=== PATIENT | male | born 1955 | race Caucasian/White ===

== ENCOUNTER → 2016-09-06 | Day surgery (SDC) | payer OTHER ==
[~2016-09-06] VITALS: Ht 185.4 cm; Wt 80.8 kg
[~2016-09-06] MED LIST: MIRALAX17 GM PO; PENTASA500 MG PO; PERCOCET 5-3251 EACH PO
--- NOTE | ~2016-09-06 | OR ---
PATIENT'S NAME: GIBRAN MCCABE [facility] [place] AGE: 61 Y [address] ROOM: [place] [address] [place] [facility] [place] DATE: 09/06/2016 OR/Procedure Report DISCHARGE DATE: FAMILY PHYSICIAN: Rashel Kaur MD ATTENDING PHYSICIAN: BETY ROGERS SURGEON: Bety Rogers MD CHILLER TENDER: León Villa PA-C DATE OF PROCEDURE: 09/06/2016 PREOPERATIVE DIAGNOSIS: Right comminuted and displaced middle one-third fracture of the clavicle. POSTOPERATIVE DIAGNOSIS: Right comminuted and displaced middle one-third fracture of the clavicle. PROCEDURES PERFORMED: 1. Open reduction and internal fixation of right comminuted and displaced middle one-third fracture of the clavicle. 2. Use of intraoperative fluoroscopy, less than 1 hour. ANESTHESIA: General endotracheal anesthesia. FLUIDS: See Anesthesia report. ESTIMATED BLOOD LOSS: Less than 50 mL. FLUIDS: See Anesthesia report. TOURNIQUET: None. SPECIMENS: None. COMPLICATIONS: None. DISPOSITION: Stable in PACU. COUNTS: All counts were correct. IMPLANTS: Synthes right periarticular locking clavicle plate and screws. INDICATIONS: Mr. Mccabe is a pleasant 61-year-old, right-hand dominant gentleman who underwent the noted procedures above. The risks, benefits, and alternatives pursuing a surgical intervention were discussed with the patient in detail. He elected to proceed with surgery. Anesthesia was consulted for their perioperative evaluation of the patient. I marked the right shoulder PATIENT'S NAME: GIBRAN MCCABE [facility] [place] AGE: 61 Y [address] ROOM: [place] [address] LOCATION: [facility] [place] DATE: 09/06/2016 OR/Procedure Report DISCHARGE DATE: FAMILY PHYSICIAN: Rashel Kaur MD ATTENDING PHYSICIAN: BETY ROGERS indicating the correct surgical site. DESCRIPTION OF PROCEDURE: The patient was brought from the holding area to the operating room. A time-out was performed. General endotracheal anesthesia was administered. The patient was placed in a beach chair position. Clindamycin antibiotic was administered for perioperative prophylaxis. The right upper extremity was then prepped and draped in a sterile fashion. I turned my attention to the clavicle. I introduced intraoperative fluoroscopy. I identified the fracture site. Using a #15 blade knife, I made a skin incision through skin, subcutaneous tissue, and clavipectoral fascia down to the clavicle. I debrided the fracture site. I used [id number]-[id number] clamps to provisionally reduce the fracture. There was a fair amount of comminution in the middle third portion of the clavicle that made the reduction of the distal third end of the clavicle more difficult. Once I had provisionally reduced the clavicle, I placed my plate. I opted to use a plate with clusters of screws at the lateral aspect in order to gain additional fixation at the distal end of the clavicle. I confirmed the position of the plate fluoroscopically. I began by drilling for, measuring, and placing a compression screw at the most proximal end of the plate. I repeated this to gain four cortices of fixation and then the medial portion of the clavicle stabilized. Once I did that I used the clavicle plate as a fulcrum in order to reduce the distal one-third aspect of the clavicle to the plate. I was able to provisionally align the comminuted fragments in a near anatomic alignment. I subsequently then drilled for, measured, and placed a compression screw to gain fixation of the distal third aspect of the clavicle. It did reduce satisfactorily. I repeated this to achieve another compression screw to bridge the fracture site. In order to gain more fixation of the distal third of the clavicle, I drilled for, measured, and placed locking screws in the cluster of holes laterally. I confirmed the position fluoroscopically. I then turned my attention back to the proximal end of the plate. Using a locking jig, I drilled for, measured, and placed a locking screw. This achieved a total of 6 cortices of fixation proximal to the fracture site. Distally, there were multiple points of fixation in the distal third of the clavicle. The middle third of the clavicle where the comminution was present was positioned in a near anatomic alignment. Final fluoroscopic images revealed evidence of a successful open reduction and internal fixation of right comminuted and displaced middle one-third clavicle fracture with plate and screw construct placed. The wound was then copiously irrigated with a normal sterile saline solution and closed in layers. Prineo was used to approximate the skin. The patient was then placed into a sling. PATIENT'S NAME: KOGIBRAN ZHAO A [facility] [place] AGE: 61 Y [address] ROOM: [place] [address] LOCATION: [facility] [place] DATE: 09/06/2016 OR/Procedure Report DISCHARGE DATE: FAMILY PHYSICIAN: Rashel Kaur MD ATTENDING PHYSICIAN: BETY ROGERS The patient was then placed supine on the operating table and transferred onto the hospital bed and extubated. He was brought to the recovery room in stable condition. There were no intraoperative complications noted. Of note, my PA, León Villa PA-C, played an integral role in the intraoperative care of this patient. This included preoperative positioning, intraoperative expert retraction, and closing and dressing functions. IMPRESSION: The patient is status post the noted procedures above. PLAN: The patient will be nonweightbearing on the right upper extremity. We will encourage passive and active range of motion of the elbow, forearm, wrist, and hand. He will be nonweightbearing on the right upper extremity with a sling. Postoperative pain control will be in the form of Percocet and IV morphine as needed for pain. DVT prophylaxis will be mechanical in nature. He will be discharged to home from the PACU provided he meets PACU discharge criteria. A postoperative chest x-ray will be obtained in the PACU prior to discharge. I will continue to follow the patient closely in the postoperative period. He will follow up with me in the office in 2 weeks for his first postoperative visit. MD ONESIMO HARO/nimal /[id number] d: 09/06/16 2206 t: 09/10/16 1353, OPERATIVE SUMMARY
== END | disposition disaster alternative care site (69) ==
LOC: GPOC 09-05 17:00 → GSDC 09:32
PROC: 0PS904Z Reposition Right Clavicle with Internal Fixation Device, Open Approach (ICD-10-PCS; principal; 2016-09-06)
DX: S42.021A Displaced fracture of shaft of right clavicle, initial encounter for closed fracture (principal); Z98.890 Other specified postprocedural states; Z88.0 Allergy status to penicillin; Z88.2 Allergy status to sulfonamides
CPT/HCPCS: C1713; J0131; J2001; J3010; J7120